=== PATIENT | female | born 1960 | race African-American/Black ===

== ENCOUNTER 2025-02-08 18:24 | Emergency (ER) | payer OTHER, SELFPAY ==
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
[2025-02-08 18:27] VITALS: BP 131/76; PULSE 83; RESP 16; TEMP 36.9; O2SAT 98
--- NOTE | 2025-02-08 19:42 | ECG_ITS ---
Test Date: 2025-02-08 20:41:42 Measurements Intervals [place] Rate: 75 P: 17 NC: 170 QRS: 1 QRSD: 94 T: 28 QT: 395 QTc: 441 Interpretive Statements SINUS RHYTHM VOLTAGE CRITERIA FOR LVH BASELINE ARTIFACT- I, II, III, AVR, AVL, AVF BORDERLINE ECG No previous ECG available for comparison Electronically Signed On 02-09-2025 07:52:11 OCCUPANCY SPECIALIST by Sin Gutierrez D.O.
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
[2025-02-08 20:53] LABS: Hematocrit 39.8 % (37.0-47.0); Hemoglobin 12.4 g/dL (12.0-15.0); Immature Granulocyte Percent A 0.5 % (0-0.5); Lymphocytes Absolute Auto 1.90 K/mm3 (0.9-3.2); Mean Corpuscular HGB Conc 31.2 g/dl (32-36); Mean Corpuscular Hemoglobin 30.8 pg (26-34); Mean Corpuscular Volume 98.8 fl (80-100); Nucleated Red Blood Cells Absolute Auto 0.000 K/mm3 (0.0-0.012); Nucleated Red Blood Cells Perc 0.0 % (0.0-0.2); Platelet Count Result 254 k/mm3 (150-375); Red Blood Count 4.03 M/mm3 (4.2-5.4); White Blood Count 6.3 K/mm3 (4.5-10.0)
[2025-02-08 21:02] LABS: Alanine Aminotransferase 18 U/L (6-35); Albumin Level 4.6 g/dL (3.5-5.1); Alkaline Phosphatase 81 U/L (38-126); Anion Gap 8 mmol/L (4-12); Aspartate Amino Transferase 28 U/L (14-36); Bilirubin,Total 0.6 mg/dL (0.2-1.3); Blood Urea Nitrogen 12 mg/dL (7-17); Calcium 9.7 mg/dL (8.4-10.2); Carbon Dioxide 22 mmol/L (22-30); Chloride 107 mmol/L (98-107); Estimated CRCL calculation 62 ml/min; Estimated Glomerular Filt Rate 60; Glucose 102 mg/dL (65-110); Potassium 3.7 mmol/L (3.4-5.0); Sodium 137 mmol/L (137-145); Total Protein 8.8 g/dL (6.3-8.2)
[2025-02-08 22:23] VITALS: BP 158/62; PULSE 88; RESP 20; O2SAT 98
== END 2025-02-08 22:25 | disposition home or self-care (01) ==
PROVIDERS: Emergency Provider Physician Assistant
DX: S16.1XXA Strain of muscle, fascia and tendon at neck level, initial encounter (principal); V89.2XXA Person injured in unspecified motor-vehicle accident, traffic, initial encounter; W22.10XA Striking against or struck by unspecified automobile airbag, initial encounter; E04.1 Nontoxic single thyroid nodule; N28.1 Cyst of kidney, acquired; Z86.73 Personal history of transient ischemic attack (TIA), and cerebral infarction without residual deficits
CPT/HCPCS: 36415; 70450; 71260; 72125; 74177; 80053; 85025; 93005; 99284; Q9967